=== PATIENT | female | born 1980 | race Caucasian/White ===

== ENCOUNTER → 2016-08-07 | Outpatient (CLI) | payer OTHER ==
[~2016-08-07] MED LIST: MOTRIN,RUFEN800 MG PO; PRENATAL1 TA1 PO; TRAMADOL HCL50 MG PO
== END | disposition home or self-care (01) ==
LOC: US 02:10
DX: Z34.91 Encounter for supervision of normal pregnancy, unspecified, first trimester (principal); Z3A.08 8 weeks gestation of pregnancy

== ENCOUNTER → 2016-09-16 | Outpatient (CLI) | payer OTHER | END | disposition home or self-care (01) | LOC: LAB 02:00 | DX: Z34.90 Encounter for supervision of normal pregnancy, unspecified, unspecified trimester (principal); Z3A.00 Weeks of gestation of pregnancy not specified ==

== ENCOUNTER → 2016-09-28 | Outpatient (CLI) | payer OTHER | END | disposition home or self-care (01) | LOC: LAB 08:11 → D 08:11 | DX: O09.522 Supervision of elderly multigravida, second trimester (principal); O24.419 Gestational diabetes mellitus in pregnancy, unspecified control; Z3A.15 15 weeks gestation of pregnancy ==

== ENCOUNTER → 2023-03-15 | Outpatient (CLI) | payer OTHER | END | disposition home or self-care (01) | LOC: RAD 16:56 | PROVIDERS: ATTEND Nurse Practitioner Women's Health | DX: N20.0 Calculus of kidney (principal); M54.50 Low back pain, unspecified ==

== ENCOUNTER → 2023-04-08 | Outpatient (CLI) | payer OTHER | END | disposition home or self-care (01) | LOC: CT 01:02 | PROVIDERS: ATTEND Urology | DX: N20.0 Calculus of kidney (principal); K42.9 Umbilical hernia without obstruction or gangrene; N85.4 Malposition of uterus ==